=== PATIENT | female | born 1980 | race Caucasian/White ===

== ENCOUNTER 2021-02-03 10:45 | Outpatient (CLI) | payer OTHER ==
[~2021-02-03 10:45] MED LIST: LEVSIN/SL0.125 MG
== END 2021-02-03 11:00 | disposition home or self-care (01) ==
LOC: PPH VACUNA 10:45
PROVIDERS: ATTEND Emergency Medicine Pediatric Emergency Medicine
DX: Z23 Encounter for immunization (principal)